=== PATIENT | female | born 1940 | race African-American/Black ===

== ENCOUNTER 2016-11-30 17:23 | Inpatient (IN) | payer MEDICARE, OTHER ==
[~2016-11-30] VITALS: Ht 165.1 cm; Wt 64.9 kg
[~2016-11-30 17:23] MED LIST: IOHEXOL-350 100 ML BOTTLE ONE; SODIUM CHLORIDE 0.9% 10ML VIAL ONE
[2016-11-30] MEDS ORDERED: ALBUTEROL (0.083%) 2.5MG/3ML NEB HHN STA (17:44)
[2016-11-30] MEDS ORDERED: METHYLPREDNISOLONE SOD SUCC 125 MG/2 ML VIAL IV STA (17:44)
[2016-11-30] MEDS ORDERED: IPRATROPIUM BROMIDE (0.02%) 0.5MG/2.5ML NEB HHN STA (17:44)
[2016-11-30] MEDS ORDERED: MAGNESIUM 2 G PREMIX 50 ML IV STA (17:44)
[2016-11-30] MEDS ORDERED: NITROGLYCERIN OINT 1GM/INCH UDPKT TD ONE (17:45)
[2016-11-30 18:52] LABS: PROTHROMBIN TIME 10.3 sec
[2016-11-30 18:53] LABS: CHLORIDE 95 mEq/L (98-107)
[2016-11-30 18:55] LABS: CARBON DIOXIDE 27 mEq/L (21-32)
[2016-11-30 18:59] LABS: BASOPHILS % 0.2 % (0.0-2.0); EOSINOPHILS % 0.6 % (0.0-5.0); HEMATOCRIT. 36.1 % (36.0-48.0); HEMOGLOBIN. 12.1 g/dL (12.0-16.0); LYMPHOCYTES % 13.7 % (20.0-50.0); MEAN CORPUSCULAR HEMOGLOBIN 31.1 pg (28.0-32.0); MEAN CORPUSCULAR VOLUME 92.4 fL (81.0-99.0); MEAN PLATELET VOLUME 9.1 fl (7.4-10.4); MONOCYTES % 9.1 % (2.0-8.0); NEUTROPHILS % 76.4 % (40.0-76.0); PLATELET 190 x1000/uL (130-400); RED CELL DISTRIBUTION WIDTH 14.7 % (11.6-14.6)
[2016-11-30 19:03] LABS: TROPONIN I 0.08 ng/mL (0.00-0.04)
[2016-11-30] MEDS ORDERED: ASPIRIN 325MG TABLET PO ONE (19:15)
[2016-11-30] MEDS ORDERED: SODIUM CHLORIDE 0.9% 500 ML IV ONE (19:34)
[2016-11-30] MEDS ORDERED: ACETAMINOPHEN 325MG TABLET PO ONE (21:45)
[2016-11-30 23:35] VITALS: BP 149/78
[2016-12-01] VITALS: BP 149/78
[2016-12-01] MEDS ORDERED: ALBUTEROL (0.083%) 2.5MG/3ML NEB HHN PRN (00:45)
[2016-12-01] MEDS ORDERED: GUAIFENESIN-DM 200MG-20MG/10ML UDC PO PRN (00:45)
[2016-12-01] MEDS ORDERED: ONDANSETRON HCL 4MG/2ML VIAL IV PRN (01:00)
[2016-12-01] MEDS ORDERED: CLONIDINE 0.1MG TABLET PO PRN (01:00)
[2016-12-01] MEDS ORDERED: ACETAMINOPHEN 325MG TABLET PO PRN (01:00)
[2016-12-01] MEDS ORDERED: MAGNESIUM/ALUMINUM HYDROXIDE/SIMETHICONE 30ML UDC PO PRN (01:00)
[2016-12-01] MEDS ORDERED: AMLO10TA80 PO (01:02)
[2016-12-01] MEDS ORDERED: PRAV80TA21 PO (01:08)
[2016-12-01] MEDS ORDERED: FURO-151 PO (01:08)
[2016-12-01] MEDS ORDERED: ISOS30TA6 PO (01:08)
[2016-12-01] MEDS ORDERED: ASPI-986 PO (01:08)
[2016-12-01] MEDS ORDERED: OMEP40CA34 PO (01:08)
[2016-12-01] MEDS ORDERED: DEXTROSE 50% WATER 50ML SYRINGE IV PRN (01:15)
[2016-12-01] MEDS: IPRATROPIUM/ALBUTEROL 0.5-3(2.5)MG/3ML NEB HHN SCH ×4 (02:43→18:24)
[2016-12-01 04:00] VITALS: BP 141/70
[2016-12-01] MEDS: METHYLPREDNISOLONE SOD SUCC 40 MG/ML VIAL IV SCH ×2 (04:35→14:52)
[2016-12-01] MEDS: BLOOD SUGAR DIAGNOSTIC STRIP TEST SCH ×3 (06:53→17:36)
[2016-12-01] MEDS: INSULIN LISPRO 100 UNITS/ML SUBCUT SCH ×3 (06:58→17:44)
[2016-12-01] MEDS ORDERED: OMEPRAZOLE 20MG CAPSULE EXTENDED RELEASE PO SCH (07:10)
[2016-12-01 08:00] VITALS: BP 126/47
[2016-12-01] MEDS ORDERED: FUROSEMIDE 40MG TABLET PO SCH (09:00)
[2016-12-01] MEDS ORDERED: ASPIRIN 81MG TABLET PO SCH (09:00)
[2016-12-01] MEDS ORDERED: ISOSORBIDE MONONITRATE 30MG TABLET SR 24HR PO SCH (09:00)
[2016-12-01] MEDS ORDERED: MEDICATION NOT ON FORMULARY EA (Omeprazole 40 MG) PO SCH (09:00)
[2016-12-01] MEDS ORDERED: ENOXAPARIN 30MG/0.3ML SYR SUBCUT SCH (09:00)
[2016-12-01] MEDS ORDERED: AMLODIPINE 10MG TABLET PO SCH (09:00)
[2016-12-01] MEDS ORDERED: MEDICATION NOT ON FORMULARY EA (Pravastatin Sodium 80 MG) PO SCH (09:00)
[2016-12-01 10:53] LABS: BG BASE EXCESS 0.4 mmol/L (-2.0-2.0); BG CARBOXYHEMOGLOBIN 0.3 % (0.5-1.5); BG DEOXYHEMOGLOBIN 1.5 % (0.0-5.0); BG FRACTION INSPIRED OXYGEN 28; BG HCO3 ACT 22.8 mmol/L (22.0-26.0); BG METHEMOGLOBIN 0.4 % (0.0-1.5); BG OXYGEN SATURATION 98.5 % (92.0-98.5); BG OXYHEMOGLOBIN 97.8 % (94.0-97.0); BG PCO2 29.4 mmHg (35.0-45.0); BG PH 7.507 (7.350-7.450); BG PO2 136.6 mmHg (75.0-100.0); BG SAMPLE SITE RIGHT BRACHIAL; BG TOTAL HEMOGLOBIN 10.7 g/dL (12.0-18.0); BG VENT MODE NASAL CANNULA
[2016-12-01 11:30] VITALS: BP 135/51
[2016-12-01] MEDS ORDERED: INSULIN LISPRO 100 UNITS/ML SUBCUT NR (12:00)
[2016-12-01] MEDS: ISOSORBIDE DINITRATE 20MG TABLET PO SCH ×2 (12:11→18:34)
[2016-12-01 13:34] VITALS: BP 135/51
[2016-12-01 16:00] VITALS: BP 117/76
[2016-12-01] MEDS ORDERED: ATORVASTATIN CALCIUM 20MG TABLET PO SCH (21:00)
== END 2016-12-01 19:35 | disposition short-term general hospital (02) | DRG 190 ==
LOC: ER 17:48 → 8WST 17:54 → EDBEDREQ 20:08 → ENRESERV 20:29 → EDBEDREQ 23:33
PROVIDERS: ADMIT Internal Medicine Pulmonary Disease; ATTEND Internal Medicine Pulmonary Disease
DX: J44.1 Chronic obstructive pulmonary disease with (acute) exacerbation (principal); N18.6 End stage renal disease; E87.2 Acidosis; I12.0 Hypertensive chronic kidney disease with stage 5 chronic kidney disease or end stage renal disease; E11.22 Type 2 diabetes mellitus with diabetic chronic kidney disease; E78.5 Hyperlipidemia, unspecified; I25.10 Atherosclerotic heart disease of native coronary artery without angina pectoris; I44.7 Left bundle-branch block, unspecified; I49.1 Atrial premature depolarization; Z77.22 Contact with and (suspected) exposure to environmental tobacco smoke (acute) (chronic); Z91.19 Patient's noncompliance with other medical treatment and regimen; Z99.2 Dependence on renal dialysis; Z88.1 Allergy status to other antibiotic agents; Z79.4 Long term (current) use of insulin
CPT/HCPCS: 36415; 36600; 70450; 71010; 71275; 80053; 82375; 82805; 82962; 83605; 83690; 84484; 85025; 85379; 85610; 87040; 93005; 94640; 94664; 96361; 96365; 96375; 99285; A4216; J1650; J1815; J2920; J2930; J3475; J7040; J7611; J7620; Q9967

== ENCOUNTER 2021-02-26 08:15 | Inpatient (IN) | payer MEDICARE, OTHER ==
[~2021-02-26] VITALS: Ht 162.6 cm; Wt 56.4 kg
[~2021-02-26 08:15] MED LIST changes: +AMLO10TA80 PO; +ASPI-986 PO; +FURO-151 PO; -IOHEXOL-350 100 ML BOTTLE ONE; +ISOS30TA91 PO; +OMEP40CA20 PO; +PRAV80TA21 PO; -SODIUM CHLORIDE 0.9% 10ML VIAL ONE
[2021-02-26] MEDS ORDERED: METHYLPREDNISOLONE SOD SUCC 125 MG/2 ML VIAL IV STA (08:28)
[2021-02-26 09:32] LABS: BASOPHILS % 1.5 % (0.0-2.0); EOSINOPHILS % 1.1 % (0.0-5.0); HEMATOCRIT. 32.5 % (36.0-48.0); HEMOGLOBIN. 10.6 g/dL (12.0-16.0); LYMPHOCYTES % 9.4 % (20.0-50.0); MEAN CORPUSCULAR VOLUME 95.5 fL (81.0-99.0); MEAN PLATELET VOLUME 7.2 fl (7.4-10.4); MONOCYTES % 9.5 % (2.0-8.0); NEUTROPHILS % 78.5 % (40.0-76.0); PLATELET 165 x1000/uL (130-400); RED CELL DISTRIBUTION WIDTH 17.5 % (11.6-14.6)
[2021-02-26 09:39] LABS: CHLORIDE 98 mEq/L (98-107)
[2021-02-26] MEDS ORDERED: CEFTRIAXONE 1 G PREMIX 50 ML IV ONE (10:15)
[2021-02-26] MEDS ORDERED: INSULIN REGULAR (HUMULIN R) 300UNITS/3ML VIAL IV ONE (10:30)
[2021-02-26] MEDS ORDERED: DEXTROSE 50% WATER 50ML SYRINGE IV ONE (10:30)
[2021-02-26] MEDS: PANTOPRAZOLE 40MG DR TABLET PO SCH (13:36)
[2021-02-26] MEDS: FUROSEMIDE 40MG TABLET PO SCH (13:37)
[2021-02-26] MEDS: AMLODIPINE 10MG TABLET PO SCH ×2 (13:37→18:36)
[2021-02-26] MEDS: METOPROLOL TARTRATE 50MG TABLET PO SCH ×2 (13:38→20:00)
[2021-02-26 14:11] LABS: HEPATITIS B SURFACE ANTIGEN NEGATIVE
[2021-02-26] MEDS ORDERED: ACETAMINOPHEN 325MG TABLET PO PRN (17:45)
[2021-02-26] MEDS ORDERED: CLONIDINE 0.1MG TABLET PO PRN (17:45)
[2021-02-26] MEDS ORDERED: IPRATROPIUM/ALBUTEROL 0.5-3(2.5)MG/3ML NEB HHN PRN (17:45)
[2021-02-26] MEDS ORDERED: ONDANSETRON HCL 4MG/2ML INJ IV PRN (17:45)
[2021-02-26] MEDS ORDERED: MAGNESIUM/ALUMINUM HYDROXIDE/SIMETHICONE 30ML UDC PO PRN (17:45)
[2021-02-26] MEDS ORDERED: DOCUSATE SODIUM 100MG CAPSULE PO PRN (17:45)
[2021-02-26] MEDS ORDERED: HYDROCODONE/ACETAMINOPHEN 5/325MG TABLET PO PRN (17:56)
[2021-02-26] MEDS ORDERED: FUROSEMIDE 100MG/10ML VIAL IVP NR (18:07)
[2021-02-26] MEDS: ENOXAPARIN 30MG/0.3ML SYR SUBCUT SCH (18:36)
[2021-02-26 20:43] VITALS: BP 161/61
[2021-02-26 21:13] VITALS: BP 161/61
[2021-02-26] MEDS: FAMOTIDINE 20MG TABLET PO SCH (23:06)
[2021-02-26] MEDS: ATORVASTATIN CALCIUM 20MG TABLET PO SCH (23:06)
[2021-02-26] MEDS: ATORVASTATIN CALCIUM 40MG TABLET PO SCH (23:07)
[2021-02-27] VITALS: BP 178/81
[2021-02-27 04:00] VITALS: BP 167/82
[2021-02-27 08:00] VITALS: BP 173/79
[2021-02-27] MEDS: AMLODIPINE 10MG TABLET PO SCH ×2 (09:00→09:11)
[2021-02-27] MEDS ORDERED: ISOSORBIDE MONONITRATE 20MG TABLET PO SCH (09:00)
[2021-02-27] MEDS: PANTOPRAZOLE 40MG DR TABLET PO SCH (09:11)
[2021-02-27] MEDS: METOPROLOL TARTRATE 50MG TABLET PO SCH ×2 (09:12→17:05)
[2021-02-27] MEDS: FUROSEMIDE 40MG TABLET PO SCH (09:12)
[2021-02-27] MEDS: ASPIRIN 81MG EC TABLET PO SCH (09:12)
[2021-02-27 11:00] LABS: BG BASE EXCESS 0.5 mmol/L (-2.0-2.0); BG CARBOXYHEMOGLOBIN 0.3 % (0.5-1.5); BG DEOXYHEMOGLOBIN 3.7 % (0.0-5.0); BG FRACTION INSPIRED OXYGEN 21; BG HCO3 ACT 24.9 mmol/L (22.0-26.0); BG METHEMOGLOBIN 0.3 % (0.0-1.5); BG OXYGEN SATURATION 96.3 % (92.0-98.5); BG OXYHEMOGLOBIN 95.7 % (94.0-97.0); BG PCO2 39.1 mmHg (35.0-45.0); BG PH 7.422 (7.350-7.450); BG PO2 83.9 mmHg (75.0-100.0); BG SAMPLE SITE LEFT RADIAL; BG TOTAL HEMOGLOBIN 11.1 g/dL (12.0-18.0); BG VENT MODE ROOM AIR
[2021-02-27 12:00] VITALS: BP 146/53
[2021-02-27] MEDS: ISOSORBIDE DINITRATE 20MG TABLET PO SCH ×2 (12:52→20:42)
[2021-02-27 16:00] VITALS: BP 119/58
[2021-02-27] MEDS: ENOXAPARIN 30MG/0.3ML SYR SUBCUT SCH (17:06)
[2021-02-27 20:00] VITALS: BP 144/60
[2021-02-27] MEDS: FAMOTIDINE 20MG TABLET PO SCH (20:42)
[2021-02-27] MEDS: ATORVASTATIN CALCIUM 40MG TABLET PO SCH (20:42)
[2021-02-27] MEDS: ATORVASTATIN CALCIUM 20MG TABLET PO SCH (20:42)
[2021-02-27] MEDS ORDERED: ISOSORBIDE DINITRATE 20MG TABLET PO SCH (21:00)
[2021-02-27] MEDS ORDERED: NALOXONE HCL 0.4MG/ML VIAL IV PRN (22:15)
[2021-02-28] VITALS (8 sets, daily range): BP systolic 115–173; BP diastolic 58–70
[2021-02-28] MEDS: PANTOPRAZOLE 40MG DR TABLET PO SCH (06:05)
[2021-02-28 07:02] LABS: CLARITY URINE CLEAR (CLEAR); COLOR URINE DARK YELLOW (YELLOW); KETONES URINE NEGATIVE (NEGATIVE); LEUKOCYTE ESTERASE URINE NEGATIVE (NEGATIVE); NITRITE URINE NEGATIVE (NEGATIVE); OCCULT BLOOD URINE TRACE (NEGATIVE); PH URINE 6.5 (4.5-8.0); PROTEIN URINE 4+ (NEGATIVE); SPECIFIC GRAVITY URINE 1.019 (1.005-1.030); UROBILINOGEN URINE 0.2 E.U./dL (0.2-1.0)
[2021-02-28] MEDS: ISOSORBIDE DINITRATE 20MG TABLET PO SCH ×2 (09:00→20:22)
[2021-02-28] MEDS: AMLODIPINE 10MG TABLET PO SCH (09:00)
[2021-02-28] MEDS: METOPROLOL TARTRATE 50MG TABLET PO SCH ×2 (09:00→17:00)
[2021-02-28] MEDS: ASPIRIN 81MG EC TABLET PO SCH (09:01)
[2021-02-28] MEDS: FUROSEMIDE 40MG TABLET PO SCH (09:01)
[2021-02-28] MEDS ORDERED: METO-539 PO (17:05)
[2021-02-28] MEDS: ENOXAPARIN 30MG/0.3ML SYR SUBCUT SCH (17:13)
[2021-02-28 17:31] LABS: HEMATOCRIT. 29.7 % (36.0-48.0); HEMOGLOBIN. 9.8 g/dL (12.0-16.0); MEAN CORPUSCULAR HEMOGLOBIN 30.9 pg (28.0-32.0); MEAN CORPUSCULAR VOLUME 93.6 fL (81.0-99.0); MEAN PLATELET VOLUME 7.8 fl (7.4-10.4); PLATELET 158 x1000/uL (130-400); RED BLOOD CELL COUNT 3.18 mill/uL (4.2-5.4); RED CELL DISTRIBUTION WIDTH 17.1 % (11.6-14.6)
[2021-02-28 17:43] LABS: CHLORIDE 97 mEq/L (98-107)
[2021-02-28 17:52] LABS: PHOSPHORUS 2.7 mg/dL (2.5-4.9)
[2021-02-28 17:53] LABS: LDL CHOLESTEROL 42 mg/dL (5-100)
[2021-02-28 17:54] LABS: T4 FREE 1.14 ng/dL (0.76-1.46)
[2021-02-28 17:55] LABS: HDL CHOLESTEROL 80 mg/dL (40-59)
[2021-02-28 18:16] LABS: HEPATITIS B SURFACE ANTIGEN NEGATIVE
[2021-02-28 20:04] LABS: PLATELET ESTIMATE NORMAL
[2021-02-28] MEDS: FAMOTIDINE 20MG TABLET PO SCH (20:22)
[2021-02-28] MEDS: ATORVASTATIN CALCIUM 40MG TABLET PO SCH (20:22)
== END 2021-02-28 22:03 | disposition home or self-care (01) | DRG 189 ==
LOC: ER 08:22 → EDBEDREQ 11:42 → ENRESERV 19:10 → 7EST 20:51
PROVIDERS: ADMIT Internal Medicine Pulmonary Disease; ATTEND Internal Medicine Pulmonary Disease
PROC: 5A1D70Z Performance of Urinary Filtration, Intermittent, Less than 6 Hours Per Day (ICD-10-PCS; principal; 2021-02-26)
PROC: 5A1D70Z Performance of Urinary Filtration, Intermittent, Less than 6 Hours Per Day (ICD-10-PCS; 2021-02-28)
DX: J96.01 Acute respiratory failure with hypoxia (principal); N18.6 End stage renal disease; I13.2 Hypertensive heart and chronic kidney disease with heart failure and with stage 5 chronic kidney disease, or end stage renal disease; E87.2 Acidosis; E87.5 Hyperkalemia; D63.8 Anemia in other chronic diseases classified elsewhere; E11.22 Type 2 diabetes mellitus with diabetic chronic kidney disease; E78.5 Hyperlipidemia, unspecified; I25.118 Atherosclerotic heart disease of native coronary artery with other forms of angina pectoris; I50.9 Heart failure, unspecified; J44.9 Chronic obstructive pulmonary disease, unspecified; Z77.22 Contact with and (suspected) exposure to environmental tobacco smoke (acute) (chronic); Z83.3 Family history of diabetes mellitus; Z20.822 Contact with and (suspected) exposure to COVID-19; Z86.73 Personal history of transient ischemic attack (TIA), and cerebral infarction without residual deficits; Z90.49 Acquired absence of other specified parts of digestive tract; Z90.710 Acquired absence of both cervix and uterus; Z91.19 Patient's noncompliance with other medical treatment and regimen; Z99.2 Dependence on renal dialysis; Z88.1 Allergy status to other antibiotic agents; Z79.899 Other long term (current) drug therapy; Z79.82 Long term (current) use of aspirin; I25.2 Old myocardial infarction
CPT/HCPCS: 36415; 36600; 71045; 80053; 80061; 80076; 81003; 82375; 82805; 83605; 83735; 83880; 84100; 84439; 84443; 84484; 85025; 86705; 86709; 86803; 87340; 87426; 93005; 93306; 93970; 97161; 99291; J0696; J1650; J1815; J1940; J2930

== ENCOUNTER 2021-09-06 21:23 | Inpatient (IN) | payer MEDICARE ==
[~2021-09-06] VITALS: Ht 157.5 cm; Wt 68.0 kg
[~2021-09-06 21:23] MED LIST changes: +METO-539 PO
[2021-09-06 23:44] LABS: HEMATOCRIT. 31.5 % (36.0-48.0); HEMOGLOBIN. 10.3 g/dL (12.0-16.0); MEAN CORPUSCULAR HEMOGLOBIN 31.2 pg (28.0-32.0); MEAN CORPUSCULAR VOLUME 95.6 fL (81.0-99.0); MEAN PLATELET VOLUME 7.5 fl (7.4-10.4); PLATELET 228 x1000/uL (130-400); RED CELL DISTRIBUTION WIDTH 16.9 % (11.6-14.6)
[2021-09-06 23:53] LABS: CHLORIDE 93 mEq/L (98-107)
[2021-09-06] MEDS ORDERED: MORPHINE SULFATE 4 MG/ML CPJ (NOT FOR IM USE) IV STA (23:57)
[2021-09-06] MEDS ORDERED: ONDANSETRON HCL 4MG/2ML INJ IV STA (23:57)
[2021-09-07] VITALS (19 sets, daily range): BP systolic 105–176; BP diastolic 53–103
[2021-09-07] MEDS ORDERED: SODIUM CHLORIDE 0.9% 1,000 ML IV ONE
[2021-09-07 00:42] LABS: PLATELET ESTIMATE NORMAL
[2021-09-07] MEDS ORDERED: PIPERACILLIN/TAZ 3.375G PREMIX 50 ML IV ONE (01:15)
[2021-09-07] MEDS ORDERED: VANCOMYCIN 1G PREMIX 200 ML IV ONE (01:15)
[2021-09-07] MEDS ORDERED: NITROGLYCERIN OINT 1GM/INCH UDPKT TD ONE (01:45)
[2021-09-07] MEDS ORDERED: IPRATROPIUM/ALBUTEROL 0.5-3(2.5)MG/3ML NEB HHN PRN (03:15)
[2021-09-07] MEDS ORDERED: PNEUMOCOCCAL 23-VAL P-SAC VAC 0.5 ML IM ONE (07:00)
[2021-09-07] MEDS ORDERED: ACETAMINOPHEN 325MG TABLET PO PRN (07:15)
[2021-09-07] MEDS ORDERED: DEXTROSE 50% WATER 50ML SYRINGE IV PRN (07:15)
[2021-09-07] MEDS: INSULIN LISPRO 100 UNITS/ML SUBCUT SCH ×4 (08:00→21:38)
[2021-09-07] MEDS: BLOOD SUGAR DIAGNOSTIC STRIP TEST SCH ×4 (08:05→21:31)
[2021-09-07] MEDS: FOLIC ACID/VITAMIN B COMP W-C TABLET PO SCH (08:46)
[2021-09-07] MEDS: SEVELAMER CARBONATE 800 MG TABLET PO SCH (08:48)
[2021-09-07] MEDS: HYDROCODONE/ACETAMINOPHEN 5/325MG TABLET PO PRN (08:48)
[2021-09-07] MEDS ORDERED: CEFTRIAXONE 1 G PREMIX 50 ML IV SCH (09:00)
[2021-09-07] MEDS ORDERED: CEFTRIAXONE 1,000 MG in SODIUM CHLORIDE 0.9% 50 ML IV SCH (09:00)
[2021-09-07] MEDS: CEFTRIAXONE 1,000 MG in DEXTROSE 5% WATER 50 ML IV SCH (09:00)
[2021-09-07] MEDS: AZITHROMYCIN 500 MG in DEXT 5% WATER 250 ML IV SCH (12:00)
[2021-09-07] MEDS ORDERED: MORPHINE SULFATE 2 MG/ML CPJ (NOT FOR IM USE) IV PRN (12:15)
[2021-09-07] MEDS: INSULIN GLARGINE 100 UNITS/ML SUBCUT SCH ×2 (12:25→21:39)
[2021-09-07] MEDS: NITROGLYCERIN 0.4MG TABLET SL SL PRN (12:26)
[2021-09-07] MEDS ORDERED: HEPARIN BOLUS PRN aPTT <30 IV (12:45)
[2021-09-07] MEDS ORDERED: HEPARIN BOLUS PRN aPTT 30-44 IV (12:45)
[2021-09-07 13:38] LABS: HEMATOCRIT. 23.6 % (36.0-48.0); HEMOGLOBIN. 8.2 g/dL (12.0-16.0); MEAN CORPUSCULAR VOLUME 95.2 fL (81.0-99.0); MEAN PLATELET VOLUME 7.4 fl (7.4-10.4); PLATELET 145 x1000/uL (130-400); RED BLOOD CELL COUNT 2.48 mill/uL (4.2-5.4); RED CELL DISTRIBUTION WIDTH 16.5 % (11.6-14.6)
[2021-09-07 13:58] LABS: D-DIMER 10.82 mg/L FEU (<0.50); PARTIAL THROMBOPLASTIN TIME 27.2 sec (23.4-31.0)
[2021-09-07] MEDS ORDERED: HEPARIN 25,000 UNITS PREMIX 250 ML IV SCH ×2 (14:00→15:30)
[2021-09-07 14:15] LABS: HEPATITIS B SURFACE ANTIGEN NEGATIVE
[2021-09-07 14:18] LABS: PLATELET ESTIMATE NORMAL
[2021-09-07] MEDS ORDERED: ATROPINE SULFATE 1MG/10ML SYR IV NR (15:30)
[2021-09-07] MEDS ORDERED: HEPARIN 60 UNITS/KG BOLUS IV SCH (15:30)
[2021-09-07 20:27] LABS: HEMATOCRIT. 23.7 % (36.0-48.0); HEMOGLOBIN. 8.1 g/dL (12.0-16.0); MEAN CORPUSCULAR HEMOGLOBIN 32.6 pg (28.0-32.0); MEAN CORPUSCULAR VOLUME 94.9 fL (81.0-99.0); MEAN PLATELET VOLUME 7.7 fl (7.4-10.4); PLATELET 150 x1000/uL (130-400)
[2021-09-07 21:34] LABS: PLATELET ESTIMATE NORMAL
[2021-09-08] VITALS (38 sets, daily range): BP systolic 87–179; BP diastolic 31–113
[2021-09-08] MEDS ORDERED: NOREPINEPHRINE 32 MG in DEXT 5% WATER 218 ML IV PRN (03:00)
[2021-09-08 03:21] LABS: BASOPHILS % 0.3 % (0.0-2.0); EOSINOPHILS % 0.1 % (0.0-5.0); HEMATOCRIT. 25.3 % (36.0-48.0); HEMOGLOBIN. 8.3 g/dL (12.0-16.0); LYMPHOCYTES % 7.5 % (20.0-50.0); MEAN CORPUSCULAR HEMOGLOBIN 31.3 pg (28.0-32.0); MEAN CORPUSCULAR VOLUME 95.3 fL (81.0-99.0); MEAN PLATELET VOLUME 7.9 fl (7.4-10.4); MONOCYTES % 8.4 % (2.0-8.0); NEUTROPHILS % 83.7 % (40.0-76.0); PLATELET 152 x1000/uL (130-400); RED BLOOD CELL COUNT 2.65 mill/uL (4.2-5.4); RED CELL DISTRIBUTION WIDTH 16.7 % (11.6-14.6)
[2021-09-08 03:39] LABS: PHOSPHORUS 2.7 mg/dL (2.5-4.9)
[2021-09-08] MEDS: BLOOD SUGAR DIAGNOSTIC STRIP TEST SCH ×4 (07:06→21:32)
[2021-09-08] MEDS: INSULIN LISPRO 100 UNITS/ML SUBCUT SCH ×4 (07:06→21:00)
[2021-09-08] MEDS: FOLIC ACID/VITAMIN B COMP W-C TABLET PO SCH (08:40)
[2021-09-08] MEDS: SEVELAMER CARBONATE 800 MG TABLET PO SCH (08:40)
[2021-09-08] MEDS: CEFTRIAXONE 1,000 MG in DEXTROSE 5% WATER 50 ML IV SCH (08:58)
[2021-09-08] MEDS ORDERED: NITROGLYCERIN 50MCG/ML 10ML VIAL (CATH LAB) IV ONE (09:31)
[2021-09-08] MEDS ORDERED: HEPARIN SODIUM 1,000 UNIT/1ML VIAL IV ONE (09:31)
[2021-09-08] MEDS: INSULIN GLARGINE 100 UNITS/ML SUBCUT SCH (10:00)
[2021-09-08] MEDS ORDERED: MIDAZOLAM HCL 2 MG/2 ML VIAL ONE ×2 (10:45→14:12)
[2021-09-08] MEDS ORDERED: FENTANYL CITRATE/PF 50MCG/ML 2ML VIAL ONE ×2 (10:45→14:12)
[2021-09-08] MEDS ORDERED: LIDOCAINE HCL 1% 20ML VIAL (Pyxis) INJ ONE ×2 (10:45→14:13)
[2021-09-08] MEDS ORDERED: IODIXANOL 320MG/ML 100 ML BOTTLE IV ONE ×3 (10:45→14:13)
[2021-09-08] MEDS ORDERED: DIPHENHYDRAMINE 50MG/ML VIAL ONE (11:05)
[2021-09-08] MEDS ORDERED: NALOXONE HCL 0.4MG/ML VIAL IV PRN (11:30)
[2021-09-08] MEDS ORDERED: IOHEXOL-300 100 ML BOTTLE ONE (11:43)
[2021-09-08] MEDS ORDERED: HYDRALAZINE 20MG/ML VIAL ONE (12:20)
[2021-09-08] MEDS ORDERED: CLOPIDOGREL 75MG TABLET ONE (12:38)
[2021-09-08] MEDS ORDERED: ASPIRIN 325MG TABLET ONE (12:38)
[2021-09-08] MEDS ORDERED: ACETAMINOPHEN 325MG TABLET PO PRN (12:45)
[2021-09-08] MEDS ORDERED: ATROPINE SULFATE 1MG/10ML SYR IV PRN (12:45)
[2021-09-08] MEDS: AZITHROMYCIN 500 MG in DEXT 5% WATER 250 ML IV SCH (13:35)
[2021-09-08] MEDS ORDERED: ASPIRIN 325MG TABLET PO NR (13:45)
[2021-09-08] MEDS ORDERED: CLOPIDOGREL 75MG TABLET PO NR (13:45)
[2021-09-08] MEDS: HYDROCODONE/ACETAMINOPHEN 5/325MG TABLET PO PRN (15:01)
[2021-09-08] MEDS: ONDANSETRON HCL 4MG/2ML INJ IV PRN ×2 (15:16→19:42)
[2021-09-08] MEDS ORDERED: EPOETIN ALFA-EPBX 4,000 UNIT/ML VIAL SUBCUT SCH (21:00)
[2021-09-08] MEDS ORDERED: EPOETIN ALFA 4000UNITS/ML VIAL SUBCUT SCH (21:00)
[2021-09-09] VITALS (34 sets, daily range): BP systolic 83–162; BP diastolic 39–129
[2021-09-09 05:43] LABS: HEMOGLOBIN. 7.8 g/dL (12.0-16.0); MEAN CORPUSCULAR HEMOGLOBIN 32.2 pg (28.0-32.0); MEAN CORPUSCULAR VOLUME 95.5 fL (81.0-99.0); MEAN PLATELET VOLUME 7.9 fl (7.4-10.4); PLATELET 142 x1000/uL (130-400); RED BLOOD CELL COUNT 2.41 mill/uL (4.2-5.4); RED CELL DISTRIBUTION WIDTH 16.6 % (11.6-14.6)
[2021-09-09 07:21] LABS: PLATELET ESTIMATE NORMAL
[2021-09-09] MEDS: INSULIN LISPRO 100 UNITS/ML SUBCUT SCH ×4 (07:41→21:27)
[2021-09-09] MEDS: BLOOD SUGAR DIAGNOSTIC STRIP TEST SCH ×4 (07:41→21:22)
[2021-09-09] MEDS: ASPIRIN 81MG TABLET PO SCH (08:46)
[2021-09-09] MEDS: CEFTRIAXONE 1,000 MG in DEXTROSE 5% WATER 50 ML IV SCH (08:46)
[2021-09-09] MEDS: CLOPIDOGREL 75MG TABLET PO SCH (08:46)
[2021-09-09] MEDS ORDERED: ASPIRIN 81MG TABLET PO SCH (09:00)
[2021-09-09] MEDS ORDERED: CLOPIDOGREL 75MG TABLET PO SCH (09:00)
[2021-09-09] MEDS: FOLIC ACID/VITAMIN B COMP W-C TABLET PO SCH (09:03)
[2021-09-09] MEDS: AZITHROMYCIN 500 MG in DEXT 5% WATER 250 ML IV SCH (12:56)
[2021-09-10] VITALS (31 sets, daily range): BP systolic 91–170; BP diastolic 52–88
[2021-09-10 05:53] LABS: BASOPHILS % 0.4 % (0.0-2.0); EOSINOPHILS % 0.1 % (0.0-5.0); HEMATOCRIT. 23.2 % (36.0-48.0); LYMPHOCYTES % 8.1 % (20.0-50.0); MEAN CORPUSCULAR HEMOGLOBIN 32.9 pg (28.0-32.0); MEAN CORPUSCULAR VOLUME 95.9 fL (81.0-99.0); MEAN PLATELET VOLUME 8.3 fl (7.4-10.4); MONOCYTES % 10.4 % (2.0-8.0); PLATELET 149 x1000/uL (130-400); RED BLOOD CELL COUNT 2.42 mill/uL (4.2-5.4); RED CELL DISTRIBUTION WIDTH 17.2 % (11.6-14.6)
[2021-09-10 06:07] LABS: PHOSPHORUS 3.8 mg/dL (2.5-4.9)
[2021-09-10] MEDS: INSULIN LISPRO 100 UNITS/ML SUBCUT SCH ×4 (07:47→21:18)
[2021-09-10] MEDS: BLOOD SUGAR DIAGNOSTIC STRIP TEST SCH ×4 (07:47→21:19)
[2021-09-10] MEDS: FOLIC ACID/VITAMIN B COMP W-C TABLET PO SCH (08:20)
[2021-09-10] MEDS: CEFTRIAXONE 1,000 MG in DEXTROSE 5% WATER 50 ML IV SCH (08:20)
[2021-09-10] MEDS: ASPIRIN 81MG TABLET PO SCH (08:20)
[2021-09-10] MEDS: CLOPIDOGREL 75MG TABLET PO SCH (08:20)
[2021-09-10] MEDS: AZITHROMYCIN 500 MG in DEXT 5% WATER 250 ML IV SCH (13:21)
[2021-09-10] MEDS: ONDANSETRON HCL 4MG/2ML INJ IV PRN (14:41)
[2021-09-10] MEDS: ATORVASTATIN CALCIUM 40MG TABLET PO SCH (21:18)
[2021-09-11] VITALS: BP 151/94
[2021-09-11 04:00] VITALS: BP 154/90
[2021-09-11] MEDS: BLOOD SUGAR DIAGNOSTIC STRIP TEST SCH ×4 (07:05→20:56)
[2021-09-11] MEDS: INSULIN LISPRO 100 UNITS/ML SUBCUT SCH ×5 (07:50→21:32)
[2021-09-11 07:59] VITALS: BP 151/125
[2021-09-11 08:16] LABS: BASOPHILS % 0.5 % (0.0-2.0); EOSINOPHILS % 0.1 % (0.0-5.0); HEMATOCRIT. 23.4 % (36.0-48.0); HEMOGLOBIN. 7.8 g/dL (12.0-16.0); LYMPHOCYTES % 7.3 % (20.0-50.0); MEAN CORPUSCULAR VOLUME 96.3 fL (81.0-99.0); MEAN PLATELET VOLUME 8.3 fl (7.4-10.4); MONOCYTES % 9.9 % (2.0-8.0); NEUTROPHILS % 82.2 % (40.0-76.0); PLATELET 171 x1000/uL (130-400); RED BLOOD CELL COUNT 2.43 mill/uL (4.2-5.4); RED CELL DISTRIBUTION WIDTH 17.2 % (11.6-14.6)
[2021-09-11] MEDS: FOLIC ACID/VITAMIN B COMP W-C TABLET PO SCH ×2 (09:00→14:02)
[2021-09-11] MEDS: CEFTRIAXONE 1,000 MG in DEXTROSE 5% WATER 50 ML IV SCH ×2 (09:00→14:02)
[2021-09-11] MEDS: CLOPIDOGREL 75MG TABLET PO SCH ×2 (09:00→14:02)
[2021-09-11] MEDS: ASPIRIN 81MG TABLET PO SCH ×2 (09:00→14:02)
[2021-09-11 12:20] VITALS: BP 138/67
[2021-09-11 16:22] VITALS: BP 148/67
[2021-09-11] MEDS: AZITHROMYCIN 500 MG in DEXT 5% WATER 250 ML IV SCH (18:22)
[2021-09-11 20:00] VITALS: BP 109/85
[2021-09-11] MEDS: EPOETIN ALFA-EPBX 10,000 UNIT/ML VIAL SUBCUT SCH (21:22)
[2021-09-11] MEDS: ATORVASTATIN CALCIUM 40MG TABLET PO SCH (21:22)
[2021-09-12] VITALS: BP 130/57
[2021-09-12 04:00] VITALS: BP 131/65
[2021-09-12] MEDS: BLOOD SUGAR DIAGNOSTIC STRIP TEST SCH ×4 (06:44→22:19)
[2021-09-12] MEDS: INSULIN LISPRO 100 UNITS/ML SUBCUT SCH ×4 (07:50→22:23)
[2021-09-12 08:14] VITALS: BP 127/67
[2021-09-12] MEDS: FOLIC ACID/VITAMIN B COMP W-C TABLET PO SCH (09:30)
[2021-09-12] MEDS: CLOPIDOGREL 75MG TABLET PO SCH (09:30)
[2021-09-12] MEDS: FUROSEMIDE 40MG TABLET PO SCH (09:31)
[2021-09-12] MEDS: ASPIRIN 81MG TABLET PO SCH (09:31)
[2021-09-12 12:00] VITALS: BP 144/62
[2021-09-12 16:20] VITALS: BP 156/72
[2021-09-12 20:00] VITALS: BP 132/60
[2021-09-12] MEDS: ATORVASTATIN CALCIUM 40MG TABLET PO SCH (22:20)
[2021-09-13] VITALS (8 sets, daily range): BP systolic 106–144; BP diastolic 55–80
[2021-09-13] MEDS: BLOOD SUGAR DIAGNOSTIC STRIP TEST SCH ×4 (07:19→20:19)
[2021-09-13] MEDS: INSULIN LISPRO 100 UNITS/ML SUBCUT SCH ×4 (07:20→20:49)
[2021-09-13 08:25] LABS: BASOPHILS % 0.5 % (0.0-2.0); EOSINOPHILS % 1.1 % (0.0-5.0); HEMATOCRIT. 21.1 % (36.0-48.0); HEMOGLOBIN. 7.1 g/dL (12.0-16.0); LYMPHOCYTES % 10.1 % (20.0-50.0); MEAN CORPUSCULAR HEMOGLOBIN 32.5 pg (28.0-32.0); MEAN CORPUSCULAR VOLUME 96.4 fL (81.0-99.0); MEAN PLATELET VOLUME 8.3 fl (7.4-10.4); MONOCYTES % 10.6 % (2.0-8.0); NEUTROPHILS % 77.7 % (40.0-76.0); PLATELET 163 x1000/uL (130-400); RED BLOOD CELL COUNT 2.19 mill/uL (4.2-5.4); RED CELL DISTRIBUTION WIDTH 16.9 % (11.6-14.6)
[2021-09-13 08:43] LABS: PHOSPHORUS 3.1 mg/dL (2.5-4.9)
[2021-09-13] MEDS: ASPIRIN 81MG TABLET PO SCH (10:53)
[2021-09-13] MEDS: CLOPIDOGREL 75MG TABLET PO SCH (10:53)
[2021-09-13] MEDS: FUROSEMIDE 40MG TABLET PO SCH (10:54)
[2021-09-13] MEDS: FOLIC ACID/VITAMIN B COMP W-C TABLET PO SCH (10:54)
[2021-09-13 11:55] LABS: BG BASE EXCESS 3.2 mmol/L (-2.0-2.0); BG CARBOXYHEMOGLOBIN 0.7 % (0.5-1.5); BG DEOXYHEMOGLOBIN 7.3 % (0.0-5.0); BG FRACTION INSPIRED OXYGEN 21; BG HCO3 ACT 27.1 mmol/L (22.0-26.0); BG METHEMOGLOBIN 0.3 % (0.0-1.5); BG OXYGEN SATURATION 92.6 % (92.0-98.5); BG OXYHEMOGLOBIN 91.7 % (94.0-97.0); BG PCO2 38.6 mmHg (35.0-45.0); BG PH 7.464 (7.350-7.450); BG PO2 63.8 mmHg (75.0-100.0); BG SAMPLE SITE LEFT RADIAL; BG TOTAL HEMOGLOBIN 9.1 g/dL (12.0-18.0); BG VENT MODE ROOM AIR
[2021-09-13] MEDS ORDERED: LACTULOSE 20G/30ML UDC PO NR (14:00)
[2021-09-13] MEDS ORDERED: CLOP-31 MT (14:52)
[2021-09-13] MEDS ORDERED: ASPI-1497 MT (14:52)
[2021-09-13] MEDS: ATORVASTATIN CALCIUM 40MG TABLET PO SCH (21:11)
[2021-09-13] MEDS: EPOETIN ALFA-EPBX 10,000 UNIT/ML VIAL SUBCUT SCH (21:12)
[2021-09-14] VITALS (9 sets, daily range): BP systolic 115–167; BP diastolic 56–90
[2021-09-14] MEDS: BLOOD SUGAR DIAGNOSTIC STRIP TEST SCH ×4 (06:39→21:09)
[2021-09-14] MEDS: INSULIN LISPRO 100 UNITS/ML SUBCUT SCH ×4 (07:50→21:12)
[2021-09-14 08:20] LABS: BASOPHILS % 0.6 % (0.0-2.0); EOSINOPHILS % 0.7 % (0.0-5.0); HEMATOCRIT. 28.8 % (36.0-48.0); HEMOGLOBIN. 9.7 g/dL (12.0-16.0); LYMPHOCYTES % 9.4 % (20.0-50.0); MEAN CORPUSCULAR HEMOGLOBIN 31.6 pg (28.0-32.0); MEAN CORPUSCULAR VOLUME 93.9 fL (81.0-99.0); MEAN PLATELET VOLUME 8.1 fl (7.4-10.4); MONOCYTES % 13.3 % (2.0-8.0); PLATELET 180 x1000/uL (130-400); RED BLOOD CELL COUNT 3.07 mill/uL (4.2-5.4); RED CELL DISTRIBUTION WIDTH 17.7 % (11.6-14.6)
[2021-09-14] MEDS: FOLIC ACID/VITAMIN B COMP W-C TABLET PO SCH (09:54)
[2021-09-14] MEDS: FUROSEMIDE 40MG TABLET PO SCH ×2 (09:55→18:34)
[2021-09-14] MEDS: CLOPIDOGREL 75MG TABLET PO SCH (09:56)
[2021-09-14] MEDS: ASPIRIN 81MG TABLET PO SCH (09:56)
[2021-09-14] MEDS ORDERED: METHYLPREDNISOLONE SOD SUCC 40 MG/ML VIAL IV NR (11:45)
[2021-09-14] MEDS: NITROGLYCERIN 0.4MG TABLET SL SL PRN ×3 (12:03→12:14)
[2021-09-14 13:13] LABS: CREATINE KINASE 123 IU/L (26-192); CREATINE KINASE MB FRACTION 4.9 ng/mL (0.5-3.6)
[2021-09-14] MEDS ORDERED: MORPHINE SULFATE 2 MG/ML CPJ (NOT FOR IM USE) IV PRN (13:45)
[2021-09-14] MEDS: IPRATROPIUM/ALBUTEROL 0.5-3(2.5)MG/3ML NEB HHN SCH ×2 (13:55→21:28)
[2021-09-14 15:02] LABS: BG BASE EXCESS -2.6 mmol/L (-2.0-2.0); BG CARBOXYHEMOGLOBIN 0.6 % (0.5-1.5); BG DEOXYHEMOGLOBIN 8.1 % (0.0-5.0); BG FRACTION INSPIRED OXYGEN 32; BG HCO3 ACT 22.1 mmol/L (22.0-26.0); BG METHEMOGLOBIN 0.3 % (0.0-1.5); BG OXYGEN SATURATION 91.8 % (92.0-98.5); BG PCO2 37.8 mmHg (35.0-45.0); BG PH 7.385 (7.350-7.450); BG PO2 64.1 mmHg (75.0-100.0); BG SAMPLE SITE LEFT RADIAL; BG VENT MODE NASAL CANNULA
[2021-09-14] MEDS: METHYLPREDNISOLONE SOD SUCC 40 MG/ML VIAL IV SCH (18:34)
[2021-09-14] MEDS: ISOSORBIDE MONONITRATE 30MG TABLET SR 24HR PO SCH (21:12)
[2021-09-14] MEDS: ATORVASTATIN CALCIUM 40MG TABLET PO SCH (21:12)
[2021-09-15] MEDS: IPRATROPIUM/ALBUTEROL 0.5-3(2.5)MG/3ML NEB HHN SCH ×4 (01:27→20:19)
[2021-09-15 04:00] VITALS: BP 157/69
[2021-09-15 06:02] LABS: HEMATOCRIT. 26.4 % (36.0-48.0); HEMOGLOBIN. 8.9 g/dL (12.0-16.0); MEAN CORPUSCULAR HEMOGLOBIN 31.6 pg (28.0-32.0); MEAN CORPUSCULAR VOLUME 94.1 fL (81.0-99.0); MEAN PLATELET VOLUME 8.1 fl (7.4-10.4); PLATELET 185 x1000/uL (130-400); RED BLOOD CELL COUNT 2.81 mill/uL (4.2-5.4); RED CELL DISTRIBUTION WIDTH 17.3 % (11.6-14.6)
[2021-09-15 06:03] LABS: PHOSPHORUS 5.2 mg/dL (2.5-4.9)
[2021-09-15] MEDS: BLOOD SUGAR DIAGNOSTIC STRIP TEST SCH ×4 (06:05→20:38)
[2021-09-15] MEDS ORDERED: GUAIFENESIN-DM 200MG-20MG/10ML UDC PO PRN (07:30)
[2021-09-15 08:00] VITALS: BP 150/69
[2021-09-15] MEDS ORDERED: METHYLPREDNISOLONE SOD SUCC 40 MG/ML VIAL IV SCH (09:00)
[2021-09-15] MEDS: FOLIC ACID/VITAMIN B COMP W-C TABLET PO SCH (09:36)
[2021-09-15] MEDS: METHYLPREDNISOLONE SOD SUCC 40 MG/ML VIAL IV SCH (09:36)
[2021-09-15] MEDS: CLOPIDOGREL 75MG TABLET PO SCH (09:37)
[2021-09-15] MEDS: ASPIRIN 81MG TABLET PO SCH (09:37)
[2021-09-15] MEDS: FUROSEMIDE 40MG TABLET PO SCH ×2 (09:37→17:29)
[2021-09-15] MEDS: INSULIN LISPRO 100 UNITS/ML SUBCUT SCH ×4 (09:39→21:01)
[2021-09-15] MEDS: ISOSORBIDE MONONITRATE 30MG TABLET SR 24HR PO SCH (09:43)
[2021-09-15] MEDS: METOPROLOL SUCCINATE 50MG ER TABLET PO SCH (09:44)
[2021-09-15 12:00] VITALS: BP 141/67
[2021-09-15] MEDS: FAMOTIDINE 20MG/2ML VIAL IV SCH (12:55)
[2021-09-15] MEDS ORDERED: INSULIN GLARGINE 100 UNITS/ML SUBCUT NR (14:30)
[2021-09-15 16:00] VITALS: BP 154/76
[2021-09-15 19:55] VITALS: BP 122/65
[2021-09-15] MEDS ORDERED: EPOETIN ALFA 10000UNITS/ML VIAL SUBCUT SCH (21:00)
[2021-09-15] MEDS ORDERED: EPOETIN ALFA-EPBX 10,000 UNIT/ML VIAL SUBCUT SCH (21:00)
[2021-09-15] MEDS: ATORVASTATIN CALCIUM 40MG TABLET PO SCH (21:00)
[2021-09-15 21:56] LABS: PLATELET ESTIMATE NORMAL
[2021-09-16] VITALS: BP 147/68
[2021-09-16] MEDS: IPRATROPIUM/ALBUTEROL 0.5-3(2.5)MG/3ML NEB HHN SCH (01:59)
[2021-09-16 04:00] VITALS: BP 140/58
[2021-09-16] MEDS: BLOOD SUGAR DIAGNOSTIC STRIP TEST SCH ×2 (06:02→12:00)
[2021-09-16 06:32] LABS: HEMATOCRIT. 25.8 % (36.0-48.0); HEMOGLOBIN. 8.7 g/dL (12.0-16.0); MEAN CORPUSCULAR VOLUME 94.7 fL (81.0-99.0); MEAN PLATELET VOLUME 7.9 fl (7.4-10.4); PLATELET 201 x1000/uL (130-400); RED BLOOD CELL COUNT 2.72 mill/uL (4.2-5.4); RED CELL DISTRIBUTION WIDTH 17.6 % (11.6-14.6)
[2021-09-16] MEDS: INSULIN LISPRO 100 UNITS/ML SUBCUT SCH ×2 (07:50→12:23)
[2021-09-16 08:00] VITALS: BP 142/65
[2021-09-16] MEDS: FOLIC ACID/VITAMIN B COMP W-C TABLET PO SCH (09:20)
[2021-09-16] MEDS: METHYLPREDNISOLONE SOD SUCC 40 MG/ML VIAL IV SCH (09:20)
[2021-09-16] MEDS: ISOSORBIDE MONONITRATE 30MG TABLET SR 24HR PO SCH (09:20)
[2021-09-16] MEDS: METOPROLOL SUCCINATE 50MG ER TABLET PO SCH (09:20)
[2021-09-16] MEDS: FUROSEMIDE 40MG TABLET PO SCH (09:21)
[2021-09-16] MEDS: CLOPIDOGREL 75MG TABLET PO SCH (09:21)
[2021-09-16] MEDS: ASPIRIN 81MG TABLET PO SCH (09:21)
[2021-09-16] MEDS: FAMOTIDINE 20MG/2ML VIAL IV SCH (09:21)
[2021-09-16] MEDS ORDERED: ALBU90AE INH (09:25)
[2021-09-16] MEDS ORDERED: FURO80TA87 MT (09:25)
[2021-09-16] MEDS ORDERED: ISOS20TA57 PO (09:25)
[2021-09-16] MEDS ORDERED: INSULIN GLARGINE 100 UNITS/ML SUBCUT SCH (10:00)
[2021-09-16 11:10] VITALS: BP 148/69
[2021-09-16 11:58] VITALS: BP 148/69
[2021-09-16 16:27] LABS: PLATELET ESTIMATE NORMAL
== END 2021-09-16 13:28 | disposition home or self-care (01) | DRG 246 ==
LOC: ER 21:23 → MICUSO 09-07 01:30 → 8WST 09-07 04:11 → 5EST 09-07 04:48 → CVICU 09-07 16:00 → 6WST 09-10 23:34
PROVIDERS: ADMIT Internal Medicine Pulmonary Disease; ATTEND Internal Medicine Pulmonary Disease
PROC: 02HV33Z Insertion of Infusion Device into Superior Vena Cava, Percutaneous Approach (ICD-10-PCS; 2021-09-07)
PROC: B548ZZA Ultrasonography of Superior Vena Cava, Guidance (ICD-10-PCS; 2021-09-07)
PROC: 5A1D70Z Performance of Urinary Filtration, Intermittent, Less than 6 Hours Per Day (ICD-10-PCS; 2021-09-07)
PROC: 027035Z Dilation of Coronary Artery, One Artery with Two Drug-eluting Intraluminal Devices, Percutaneous Approach (ICD-10-PCS; principal; 2021-09-08)
PROC: 4A023N7 Measurement of Cardiac Sampling and Pressure, Left Heart, Percutaneous Approach (ICD-10-PCS; 2021-09-08)
PROC: B211YZZ Fluoroscopy of Multiple Coronary Arteries using Other Contrast (ICD-10-PCS; 2021-09-08)
PROC: B41FYZZ Fluoroscopy of Right Lower Extremity Arteries using Other Contrast (ICD-10-PCS; 2021-09-08)
PROC: 5A1D70Z Performance of Urinary Filtration, Intermittent, Less than 6 Hours Per Day (ICD-10-PCS; 2021-09-08)
PROC: 5A1D70Z Performance of Urinary Filtration, Intermittent, Less than 6 Hours Per Day (ICD-10-PCS; 2021-09-11)
PROC: 30233N1 Transfusion of Nonautologous Red Blood Cells into Peripheral Vein, Percutaneous Approach (ICD-10-PCS; 2021-09-13)
PROC: 02HV33Z Insertion of Infusion Device into Superior Vena Cava, Percutaneous Approach (ICD-10-PCS; 2021-09-13)
PROC: B548ZZA Ultrasonography of Superior Vena Cava, Guidance (ICD-10-PCS; 2021-09-13)
PROC: 5A1D70Z Performance of Urinary Filtration, Intermittent, Less than 6 Hours Per Day (ICD-10-PCS; 2021-09-13)
DX: I21.4 Non-ST elevation (NSTEMI) myocardial infarction (principal); J96.01 Acute respiratory failure with hypoxia; I50.43 Acute on chronic combined systolic (congestive) and diastolic (congestive) heart failure; N18.6 End stage renal disease; J18.9 Pneumonia, unspecified organism; E87.1 Hypo-osmolality and hyponatremia; E87.2 Acidosis; I13.2 Hypertensive heart and chronic kidney disease with heart failure and with stage 5 chronic kidney disease, or end stage renal disease; J90 Pleural effusion, not elsewhere classified; J81.1 Chronic pulmonary edema; D64.9 Anemia, unspecified; E11.22 Type 2 diabetes mellitus with diabetic chronic kidney disease; E11.65 Type 2 diabetes mellitus with hyperglycemia; E78.5 Hyperlipidemia, unspecified; E87.8 Other disorders of electrolyte and fluid balance, not elsewhere classified; I16.0 Hypertensive urgency; I27.20 Pulmonary hypertension, unspecified; I25.10 Atherosclerotic heart disease of native coronary artery without angina pectoris; J44.9 Chronic obstructive pulmonary disease, unspecified; K21.9 Gastro-esophageal reflux disease without esophagitis; E87.5 Hyperkalemia; I25.2 Old myocardial infarction; Z20.822 Contact with and (suspected) exposure to COVID-19; Z99.2 Dependence on renal dialysis; Z88.8 Allergy status to other drugs, medicaments and biological substances; Z82.49 Family history of ischemic heart disease and other diseases of the circulatory system; Z83.3 Family history of diabetes mellitus; Z86.73 Personal history of transient ischemic attack (TIA), and cerebral infarction without residual deficits; R74.01 Elevation of levels of liver transaminase levels; R00.1 Bradycardia, unspecified
CPT/HCPCS: 36415; 36573; 36600; 71045; 71250; 74018; 74176; 76604; 78580; 80048; 80053; 82375; 82550; 82553; 82805; 82962; 83036; 83605; 83735; 83880; 84100; 84132; 84145; 84484; 85025; 85347; 85379; 86705; 86709; 86803; 86850; 86900; 86920; 87340; 87426; 92610; 92928; 93005; 93306; 93458; 93922; 93970; 94640; 97116; 97162; 97530; 99291; C1725; C1760; C1769; C1874; C1887; C1893; C9803; J0360; J0456; J0696; J0885; J1200; J1644; J1815; J2250; J2270; J2405; J2543; J2920; J3010; J3490; J7030; J7060; P9016; Q9967

== ENCOUNTER 2021-09-23 15:09 | Emergency (ER) | payer MEDICARE ==
[~2021-09-23] VITALS: Ht 160 cm; Wt 63.0 kg
[~2021-09-23 15:09] MED LIST changes: +ALBU90AE INH; -AMLO10TA80 PO; +ASPI-1497 MT; -ASPI-986 PO; +CLOP-31 MT; -FURO-151 PO; +FURO80TA87 MT; +ISOS20TA57 PO; -ISOS30TA91 PO; -METO-539 PO
[2021-09-23 15:22] VITALS: BP 136/53
[2021-09-23 16:05] LABS: BASOPHILS % 0.9 % (0.0-2.0); EOSINOPHILS % 1.4 % (0.0-5.0); HEMATOCRIT. 33.1 % (36.0-48.0); HEMOGLOBIN. 10.7 g/dL (12.0-16.0); LYMPHOCYTES % 11.6 % (20.0-50.0); MEAN CORPUSCULAR HEMOGLOBIN 32.4 pg (28.0-32.0); MEAN CORPUSCULAR VOLUME 100.2 fL (81.0-99.0); MEAN PLATELET VOLUME 7.5 fl (7.4-10.4); MONOCYTES % 12.9 % (2.0-8.0); NEUTROPHILS % 73.2 % (40.0-76.0); PLATELET 227 x1000/uL (130-400); RED CELL DISTRIBUTION WIDTH 20.2 % (11.6-14.6)
[2021-09-23 16:15] LABS: CHLORIDE 94 mEq/L (98-107)
[2021-09-23] MEDS ORDERED: NA PHOS,M-B/NA PHOS,DI-BA ENEMA 118ML PR STA (19:44)
[2021-09-23] MEDS ORDERED: SORBITOL 70% SOLN 30ML PO ONE (21:15)
[2021-09-23] MEDS ORDERED: BISACODYL 10MG SUPP PR ONE (21:15)
== END 2021-09-23 23:05 | disposition home or self-care (01) ==
LOC: ER 15:15
DX: K59.00 Constipation, unspecified (principal); I10 Essential (primary) hypertension; I12.0 Hypertensive chronic kidney disease with stage 5 chronic kidney disease or end stage renal disease; E11.22 Type 2 diabetes mellitus with diabetic chronic kidney disease; N18.6 End stage renal disease; Z99.2 Dependence on renal dialysis; Z79.899 Other long term (current) drug therapy
CPT/HCPCS: 36415; 74176; 80053; 85025; 93005; 99285

== ENCOUNTER 2022-03-07 03:29 | Inpatient (IN) | payer MEDICARE ==
[~2022-03-07] VITALS: Ht 172.7 cm; Wt 67.6 kg
[2022-03-07] VITALS (13 sets, daily range): BP systolic 101–162; BP diastolic 46–93
[2022-03-07] MEDS ORDERED: IPRATROPIUM BROMIDE (0.02%) 0.5MG/2.5ML NEB HHN STA (05:27)
[2022-03-07] MEDS ORDERED: ALBUTEROL (0.083%) 2.5MG/3ML NEB HHN STA (05:27)
[2022-03-07 05:55] LABS: BASOPHILS % 1.4 % (0.0-2.0); EOSINOPHILS % 1.2 % (0.0-5.0); HEMATOCRIT. 33.5 % (36.0-48.0); HEMOGLOBIN. 11.3 g/dL (12.0-16.0); LYMPHOCYTES % 18.9 % (20.0-50.0); MEAN CORPUSCULAR VOLUME 94.9 fL (81.0-99.0); MEAN PLATELET VOLUME 7.9 fl (7.4-10.4); MONOCYTES % 8.9 % (2.0-8.0); NEUTROPHILS % 69.6 % (40.0-76.0); PLATELET 184 x1000/uL (130-400); RED BLOOD CELL COUNT 3.53 mill/uL (4.2-5.4); RED CELL DISTRIBUTION WIDTH 16.6 % (11.6-14.6)
[2022-03-07 05:57] LABS: CHLORIDE 84 mEq/L (98-107)
[2022-03-07] MEDS ORDERED: LEVOFLOXACIN 750MG PREMIX 150 ML IV ONE (07:45)
[2022-03-07] MEDS ORDERED: DOCUSATE SODIUM 100MG CAPSULE PO PRN (15:00)
[2022-03-07] MEDS ORDERED: ENOXAPARIN 40MG/0.4ML SYR SUBCUT SCH (15:00)
[2022-03-07] MEDS ORDERED: IPRATROPIUM/ALBUTEROL 0.5-3(2.5)MG/3ML NEB HHN PRN (15:00)
[2022-03-07] MEDS ORDERED: CLONIDINE 0.1MG TABLET PO PRN (15:00)
[2022-03-07] MEDS: FUROSEMIDE 100MG/10ML VIAL IVP SCH (15:43)
[2022-03-07] MEDS: ASPIRIN 81MG EC TABLET PO SCH (15:43)
[2022-03-07] MEDS: CLOPIDOGREL 75MG TABLET PO SCH (15:45)
[2022-03-07] MEDS: ENOXAPARIN 30MG/0.3ML SYR SUBCUT SCH (16:00)
[2022-03-07 16:41] LABS: HEPATITIS B SURFACE ANTIGEN NEGATIVE
[2022-03-07] MEDS ORDERED: ZOLPIDEM TARTRATE 5MG TABLET PO PRN (21:00)
[2022-03-07] MEDS ORDERED: DEXTROSE 50% WATER 50ML SYRINGE IV PRN (21:15)
[2022-03-07] MEDS: PANTOPRAZOLE 40MG DR TABLET PO SCH (21:40)
[2022-03-07] MEDS: GUAIFENESIN/CODEINE 200-20MG/10ML UDC PO PRN (21:40)
[2022-03-07] MEDS: ATORVASTATIN CALCIUM 40MG TABLET PO SCH (21:40)
[2022-03-08] VITALS (13 sets, daily range): BP systolic 126–168; BP diastolic 51–74
[2022-03-08] MEDS: ACETAMINOPHEN 325MG TABLET PO PRN ×2 (00:40→06:10)
[2022-03-08] MEDS: BLOOD SUGAR DIAGNOSTIC STRIP TEST SCH ×2 (06:11→13:08)
[2022-03-08] MEDS: PANTOPRAZOLE 40MG DR TABLET PO SCH (06:16)
[2022-03-08] MEDS: ONDANSETRON HCL 4MG/2ML INJ IV PRN (06:51)
[2022-03-08 06:56] LABS: BG CARBOXYHEMOGLOBIN 0.8 % (0.5-1.5); BG HCO3 ACT 27.8 mmol/L (22.0-26.0); BG METHEMOGLOBIN 0.2 % (0.0-1.5); BG OXYGEN SATURATION 80.8 % (92.0-98.5); BG PCO2 43.2 mmHg (35.0-45.0); BG PH 7.426 (7.350-7.450); BG PO2 45.3 mmHg (75.0-100.0); BG SAMPLE SITE RIGHT RADIAL; BG TOTAL HEMOGLOBIN 11.2 g/dL (12.0-18.0); BG VENT MODE ROOM AIR
[2022-03-08 07:04] LABS: HEMATOCRIT. 33.4 % (36.0-48.0); HEMOGLOBIN. 11.2 g/dL (12.0-16.0); MEAN CORPUSCULAR HEMOGLOBIN 31.8 pg (28.0-32.0); MEAN CORPUSCULAR VOLUME 95.1 fL (81.0-99.0); MEAN PLATELET VOLUME 7.8 fl (7.4-10.4); PLATELET 210 x1000/uL (130-400); RED BLOOD CELL COUNT 3.51 mill/uL (4.2-5.4); RED CELL DISTRIBUTION WIDTH 16.4 % (11.6-14.6)
[2022-03-08 07:09] LABS: CHLORIDE 92 mEq/L (98-107)
[2022-03-08 07:27] LABS: PHOSPHORUS 3.3 mg/dL (2.5-4.9)
[2022-03-08] MEDS ORDERED: INSULIN LISPRO 100 UNITS/ML SUBCUT SCH (08:10)
[2022-03-08] MEDS: INSULIN LISPRO 100 UNITS/ML SUBCUT SCH ×2 (08:10→13:10)
[2022-03-08 08:42] LABS: VITAMIN B12 SERUM 1191 pg/mL (211-911)
[2022-03-08] MEDS ORDERED: ISOSORBIDE MONONITRATE 20MG TABLET PO SCH (09:00)
[2022-03-08] MEDS: FUROSEMIDE 100MG/10ML VIAL IVP SCH (09:04)
[2022-03-08] MEDS: ASPIRIN 81MG EC TABLET PO SCH (09:04)
[2022-03-08] MEDS: CLOPIDOGREL 75MG TABLET PO SCH (09:04)
[2022-03-08 10:07] LABS: PLATELET ESTIMATE NORMAL
[2022-03-08] MEDS: IPRATROPIUM/ALBUTEROL 0.5-3(2.5)MG/3ML NEB HHN SCH ×3 (10:10→20:57)
[2022-03-08] MEDS: SENNOSIDES/DOCUSATE SOD 8.6/50MG TABLET PO PRN (14:09)
[2022-03-08] MEDS: ENOXAPARIN 30MG/0.3ML SYR SUBCUT SCH (15:50)
[2022-03-08] MEDS: AMLODIPINE 5MG TABLET PO SCH (20:24)
[2022-03-08] MEDS: ATORVASTATIN CALCIUM 40MG TABLET PO SCH (20:24)
[2022-03-09] VITALS (11 sets, daily range): BP systolic 114–157; BP diastolic 54–80
[2022-03-09] MEDS: IPRATROPIUM/ALBUTEROL 0.5-3(2.5)MG/3ML NEB HHN SCH ×4 (02:26→20:19)
[2022-03-09 08:46] LABS: MEAN CORPUSCULAR VOLUME 94.8 fL (81.0-99.0); PLATELET 185 x1000/uL (130-400); RED BLOOD CELL COUNT 2.96 mill/uL (4.2-5.4); RED CELL DISTRIBUTION WIDTH 16.4 % (11.6-14.6)
[2022-03-09 09:23] LABS: PHOSPHORUS 2.8 mg/dL (2.5-4.9)
[2022-03-09] MEDS: ASPIRIN 81MG EC TABLET PO SCH (09:27)
[2022-03-09] MEDS: FAMOTIDINE 20MG TABLET PO SCH (09:27)
[2022-03-09] MEDS: FOLIC ACID/VITAMIN B COMP W-C TABLET PO SCH (09:27)
[2022-03-09] MEDS: FUROSEMIDE 100MG/10ML VIAL IVP SCH (09:27)
[2022-03-09] MEDS: CLOPIDOGREL 75MG TABLET PO SCH (09:27)
[2022-03-09] MEDS: AMLODIPINE 5MG TABLET PO SCH (09:28)
[2022-03-09 11:40] LABS: HEMOGLOBIN. 9.5 g/dL (12.0-16.0)
[2022-03-09] MEDS: SENNOSIDES/DOCUSATE SOD 8.6/50MG TABLET PO PRN (15:13)
[2022-03-09] MEDS: ENOXAPARIN 30MG/0.3ML SYR SUBCUT SCH (15:13)
[2022-03-09] MEDS: GUAIFENESIN/CODEINE 200-20MG/10ML UDC PO PRN (18:40)
[2022-03-09] MEDS: ATORVASTATIN CALCIUM 40MG TABLET PO SCH (20:59)
[2022-03-09] MEDS ORDERED: EPOETIN ALFA-EPBX 4,000 UNIT/ML VIAL SUBCUT SCH (21:00)
[2022-03-10] VITALS: BP 138/61
[2022-03-10 04:00] VITALS: BP 134/62
[2022-03-10] MEDS: IPRATROPIUM/ALBUTEROL 0.5-3(2.5)MG/3ML NEB HHN SCH ×4 (04:20→21:07)
[2022-03-10 08:00] VITALS: BP 110/53
[2022-03-10 08:11] LABS: HEMATOCRIT 27.6 % (36.0-48.0); HEMOGLOBIN 9.3 g/dL (12.0-16.0); MEAN CORPUSCULAR HEMOGLOBIN 32.1 pg (28.0-32.0); MEAN CORPUSCULAR VOLUME 94.8 fL (81.0-99.0); PLATELET 208 x1000/uL (130-400); RED BLOOD CELL COUNT 2.91 mill/uL (4.2-5.4); RED CELL DISTRIBUTION WIDTH 16.3 % (11.6-14.6)
[2022-03-10] MEDS: FOLIC ACID/VITAMIN B COMP W-C TABLET PO SCH (08:41)
[2022-03-10] MEDS: CLOPIDOGREL 75MG TABLET PO SCH (08:41)
[2022-03-10] MEDS: FAMOTIDINE 20MG TABLET PO SCH (08:41)
[2022-03-10] MEDS: AMLODIPINE 5MG TABLET PO SCH (08:42)
[2022-03-10] MEDS: ASPIRIN 81MG EC TABLET PO SCH (08:42)
[2022-03-10 12:00] VITALS: BP 129/60
[2022-03-10] MEDS: FUROSEMIDE 100MG/10ML VIAL IVP SCH (12:23)
[2022-03-10 14:46] LABS: PLATELET ESTIMATE NORMAL
[2022-03-10 16:00] VITALS: BP 121/59
[2022-03-10] MEDS: ENOXAPARIN 30MG/0.3ML SYR SUBCUT SCH (16:37)
[2022-03-10] MEDS: ATORVASTATIN CALCIUM 40MG TABLET PO SCH (21:36)
[2022-03-11] VITALS (12 sets, daily range): BP systolic 118–144; BP diastolic 50–80
[2022-03-11] MEDS: IPRATROPIUM/ALBUTEROL 0.5-3(2.5)MG/3ML NEB HHN SCH ×3 (00:44→13:37)
[2022-03-11] MEDS: ASPIRIN 81MG EC TABLET PO SCH (08:34)
[2022-03-11] MEDS: FAMOTIDINE 20MG TABLET PO SCH (08:34)
[2022-03-11] MEDS: AMLODIPINE 5MG TABLET PO SCH (08:34)
[2022-03-11] MEDS: FOLIC ACID/VITAMIN B COMP W-C TABLET PO SCH (08:34)
[2022-03-11] MEDS: CLOPIDOGREL 75MG TABLET PO SCH (08:35)
[2022-03-11] MEDS: FUROSEMIDE 100MG/10ML VIAL IVP SCH (09:00)
[2022-03-11 09:59] LABS: BG BASE EXCESS 3.1 mmol/L (-2.0-2.0); BG CARBOXYHEMOGLOBIN 0.3 % (0.5-1.5); BG DEOXYHEMOGLOBIN 9.3 % (0.0-5.0); BG FRACTION INSPIRED OXYGEN 21; BG HCO3 ACT 26.3 mmol/L (22.0-26.0); BG OXYGEN SATURATION 90.6 % (92.0-98.5); BG OXYHEMOGLOBIN 89.4 % (94.0-97.0); BG PCO2 34.9 mmHg (35.0-45.0); BG PH 7.495 (7.350-7.450); BG PO2 57.4 mmHg (75.0-100.0); BG SAMPLE SITE LEFT RADIAL; BG TOTAL HEMOGLOBIN 9.9 g/dL (12.0-18.0); BG VENT MODE ROOM AIR
[2022-03-11] MEDS: ONDANSETRON HCL 4MG/2ML INJ IV PRN (12:37)
[2022-03-11 14:02] LABS: HEMATOCRIT. 26.6 % (36.0-48.0); MEAN CORPUSCULAR HEMOGLOBIN 32.2 pg (28.0-32.0); MEAN CORPUSCULAR VOLUME 95.2 fL (81.0-99.0); MEAN PLATELET VOLUME 8.4 fl (7.4-10.4); PLATELET 206 x1000/uL (130-400); RED BLOOD CELL COUNT 2.79 mill/uL (4.2-5.4); RED CELL DISTRIBUTION WIDTH 16.5 % (11.6-14.6)
[2022-03-11 14:05] LABS: PLATELET ESTIMATE NORMAL
[2022-03-11 14:16] LABS: PHOSPHORUS 3.2 mg/dL (2.5-4.9)
[2022-03-11] MEDS: ENOXAPARIN 30MG/0.3ML SYR SUBCUT SCH (18:41)
== END 2022-03-11 19:15 | disposition home or self-care (01) | DRG 291 ==
LOC: ER 03:29 → EDBD 03:29 → 7WST 09:55 → EDBEDREQ 09:57 → EDBEDREQTM 09:57 → ENRESERV 10:06
PROVIDERS: ADMIT Internal Medicine Pulmonary Disease; ATTEND Internal Medicine Pulmonary Disease
PROC: 5A1D70Z Performance of Urinary Filtration, Intermittent, Less than 6 Hours Per Day (ICD-10-PCS; principal; 2022-03-08)
PROC: 5A1D70Z Performance of Urinary Filtration, Intermittent, Less than 6 Hours Per Day (ICD-10-PCS; 2022-03-09)
PROC: 5A1D70Z Performance of Urinary Filtration, Intermittent, Less than 6 Hours Per Day (ICD-10-PCS; 2022-03-11)
DX: I11.0 Hypertensive heart disease with heart failure (principal); I50.31 Acute diastolic (congestive) heart failure; N18.6 End stage renal disease; J96.01 Acute respiratory failure with hypoxia; J44.0 Chronic obstructive pulmonary disease with (acute) lower respiratory infection; R18.8 Other ascites; E87.1 Hypo-osmolality and hyponatremia; E87.5 Hyperkalemia; D72.819 Decreased white blood cell count, unspecified; D64.9 Anemia, unspecified; E78.5 Hyperlipidemia, unspecified; E21.3 Hyperparathyroidism, unspecified; E11.40 Type 2 diabetes mellitus with diabetic neuropathy, unspecified; K21.9 Gastro-esophageal reflux disease without esophagitis; I25.10 Atherosclerotic heart disease of native coronary artery without angina pectoris; E11.22 Type 2 diabetes mellitus with diabetic chronic kidney disease; Z99.2 Dependence on renal dialysis; Z90.49 Acquired absence of other specified parts of digestive tract; Z82.49 Family history of ischemic heart disease and other diseases of the circulatory system; Z86.73 Personal history of transient ischemic attack (TIA), and cerebral infarction without residual deficits; Z90.710 Acquired absence of both cervix and uterus; Z79.899 Other long term (current) drug therapy; I25.2 Old myocardial infarction; Z87.01 Personal history of pneumonia (recurrent); Z88.8 Allergy status to other drugs, medicaments and biological substances
CPT/HCPCS: 36415; 36600; 71045; 71250; 74176; 80048; 80053; 82375; 82607; 82805; 82962; 83036; 83605; 83735; 84100; 84443; 84484; 85025; 85027; 86705; 86709; 86803; 87340; 90935; 93005; 94640; 97162; 99285; A6261; C1893; J0885; J1650; J1815; J1940; J1956; J2405